=== PATIENT | male | born 1945 | race Caucasian/White ===

== ENCOUNTER 2019-08-20 06:38 | Day surgery (SDC) | payer SELFPAY ==
[~2019-08-20] VITALS: Ht 172.7 cm; Wt 73.5 kg
[~2019-08-20 06:38] MED LIST: COUMADIN4 MG PO
[2019-08-20 07:05] VITALS: BP 144/85; PULSE 84; TEMP 97.7
[2019-08-20] MEDS ORDERED: COUMADIN 2MG2 MG/TAB PO (07:15)
--- NOTE | 2019-08-20 07:16 | NUR ---
TO RM AT 0645- CALL LIGHT IN REACH FRIEND WILL BE BACK TO TAKE PATIENT HOME
[2019-08-20 08:15] VITALS: BP 136/96; PULSE 81
--- NOTE | 2019-08-20 08:15 | NUR ---
TO BAY 3 PER CART FROM ENDOSCOPY. ALERT ORIENTED X3, AMBULATED TO RECLINER WITH ASSIST AND TOLERATED WELL. RECEIVED COFFEE. FRIEND AC AT BEDSIDE.
[2019-08-20 08:30] VITALS: BP 147/87; PULSE 81
--- NOTE | 2019-08-20 08:30 | NUR ---
INSTRUCTED PATIENT TO TAKE FEW DEEP BREATHS AND 02 SATS UP TO 98% TOLERATING COFFEE WELL.
[2019-08-20 08:40] VITALS: BP 116/92; PULSE 71
--- NOTE | 2019-08-20 08:40 | NUR ---
RECEIVED DISCHARGE INSTRUCTIONS AND VERBALIZED UNDERSTANDING INSTRUCTED PATIENT FOR NEXT COLONOSCOPY IN 5YRS.
--- NOTE | 2019-08-20 08:50 | NUR ---
DISCHARGED PER WC BY NURSING STAFF TO PRIVATE CAR IN CARE OF FRIEND AC
== END 2019-08-20 09:05 | disposition home or self-care (01) ==
LOC: SDCO 06:38
DX: D12.3 Benign neoplasm of transverse colon (principal); I48.91 Unspecified atrial fibrillation; Z79.01 Long term (current) use of anticoagulants; Z80.3 Family history of malignant neoplasm of breast; Z82.49 Family history of ischemic heart disease and other diseases of the circulatory system; Z87.891 Personal history of nicotine dependence; C44.90 Unspecified malignant neoplasm of skin, unspecified
CPT/HCPCS: J2704; J7120

== ENCOUNTER → 2021-09-01 | Outpatient (CLI) | payer MEDICARE ==
[~2021-09-01] MED LIST changes: +COUMADIN 2MG2 MG/TAB PO
== END ==
LOC: COL.RAD 11:06
DX: I65.21 Occlusion and stenosis of right carotid artery (principal); I65.02 Occlusion and stenosis of left vertebral artery
CPT/HCPCS: Q9967

== ENCOUNTER 2022-02-18 14:45 | Inpatient (IN) | payer MEDICARE ==
[~2022-02-18] VITALS: Ht 167.6 cm; Wt 63.0 kg
[2022-02-18] MEDS ORDERED: COUMADIN 1MG1 MG/TAB PO (15:07)
[2022-02-18] MEDS ORDERED: LIPITOR 10MG10 MG PO (15:07)
[2022-02-18 15:08] LABS: BASO % 0.6 % (0.0-2.0); EOS % 0.6 % (0.0-4.0); GRAN # 4.9 K/mm3 (1.4-6.5); GRAN % 72.1 % (42.2-75.2); HEMOGLOBIN 12.6 g/dl (13.5-18.0); LYMPH # 1.2 K/mm3 (1.2-3.4); LYMPH % 17.2 % (20.0-51.0); MEAN CELL VOLUME 85 fl (80.0-100.0); MEAN CORPUSCULAR HEMOGLOBIN 31 pg (27-31); MEAN CORPUSCULAR HGB CONC 36 g/dl (33.0-37.0); MEAN PLATELET VOLUME 10.2 fl (7.4-10.4); MONO # 0.6 K/mm3 (0.1-0.6); MONO % 9.1 % (1.7-9.3); PLATELET COUNT 151 K/mm3 (130-400); REDCELL DISTRIBUTION WIDTH-CV 12.7 % (11.5-14.5)
[2022-02-18] MEDS ORDERED: RAPAFLO8 MG PO (15:08)
[2022-02-18] MEDS ORDERED: TRENTAL 400MG400 MG PO (15:08)
[2022-02-18 15:09] LABS: HEMATOCRIT 34.9 % (42.0-52.0)
[2022-02-18 15:33] LABS: ALBUMIN 3.6 gm/dL (3.4-4.8); ALKALINE PHOSPHATASE 52 U/L (40-150); ANION GAP 14 mmol/L (7-16); AST,SGOT 22 U/L (5-34); BILIRUBIN,TOTAL 2.1 mg/dL (0.2-1.2); BLOOD UREA NITROGEN 19 mg/dL (8-26); CALCIUM 8.6 mg/dL (8.4-10.2); CARBON DIOXIDE 20 mmol/L (23-31); CHLORIDE 98 mmol/L (98-107); CREATININE, serum 0.72 mg/dL (0.72-1.25); GLUCOSE 102 mg/dL (70-99); POTASSIUM 3.2 mmol/L (3.5-4.5); SODIUM 132 mmol/L (136-145); TOTAL PROTEIN 6.7 gm/dL (6.2-8.1)
[2022-02-18 15:38] LABS: ALANINE AMINOTRANSFERASE < 6 U/L (0-55)
[2022-02-18 15:48] LABS: INR 16.6 (0.8-3.0); PROTHROMBIN TIME 196.6 SECONDS (9.7-12.8)
[2022-02-18 15:51] LABS: TROPONIN-I < 0.010 ng/mL (0.00-0.033)
--- NOTE | 2022-02-18 17:30 | NUR ---
PATIENT ARRIVED TO FLOOR FROM ED IN STABLE CONDITION. HPOXIC UPON ARRIVAL, PLACED ON 2L O2 VIA NC. TACHYCARDIC IN AFIB UPON ARRIVAL. NO COMPLAINTS OF CHEST PAIN OR DIFFICULTY BREATHING. DENIES PAIN AT THIS TIME. MODERATE BLEEDING OBSERVED FROM ORAL CAVITY. PATIENT GIVEN SMALL AMOUNT OF WARM WATER TO SWISH AND SPIT. WILL CONTINUE TO MONITOR FOR SPONTANEOUS BLEEDING FROM OTHER SITES, NONE IDENTIFIED AT THIS TIME. BRUISING TO MULTIPLE AREAS OF THE BODY NOTED. NO SKIN BREAKDOWN OR ULCERATIONS NOTED. PATIENT APPEARS DISHEVELED. PLEASANT. A&O X4. IV SITE PATENT WITH FLUIDS RUNNING ORDERED. MEAL TRAY ORDERED PER DIET. PATIENT ADVISED TO CALL FOR ASSIST WITH AMBULATION AND BATHROOM FALL RISK IS HIGH AND DANGEROUS AT THIS TIME DUE TO BLEEDING RISK. PATIENT VERBALIZED UNDERSTANDING. ORDERS RECIEVED AND REVIEWED. MED REC DONE.
[2022-02-18 18:01] VITALS: BP 119/73; PULSE 109; TEMP 97.9
--- NOTE | 2022-02-18 19:59 | NUR ---
PATIENT IN AFIB RVR VERY RAPID RATE ABOVE 180, NOTIFIED MITCHELL PIMENTEL, PATIENT REST ROOM DENIES SYMPTOMS
[2022-02-18 20:00] VITALS: BP 117/66; PULSE 100; TEMP 97.8
--- NOTE | 2022-02-18 20:00 | NUR ---
Patient is resting in bed, alert but partially oriented. Telemetry in place, AFIB, Tachycardic. Jumps from 80's to 150 and to 180 when walking. 2l O2 NC. Receiving NS 75 ML/HR. Assessment completed, no other needs at this time. Call light within reach.
--- NOTE | 2022-02-18 21:00 | NUR ---
Called from aid stating patient removed one tooth. Checking the patient I found a molar on the table, not much fresh blood on it. Patient stated he had pain in his left upper molar and since it was already loose he just pull it out. I reported issue to Rocio CASIANO. Some water provided to wash and spit on tray provided, and a gauze placed in the molar extracted. Not much blood present. Continue monitoring.
[2022-02-18 23:27] LABS: HEMOGLOBIN 11.5 g/dl (13.5-18.0)
[2022-02-18 23:34] LABS: INR 2.5 (0.8-3.0); PROTHROMBIN TIME 28.4 SECONDS (9.7-12.8)
[2022-02-18 23:57] LABS: HEMATOCRIT 32.6 % (42.0-52.0)
[2022-02-19] VITALS (7 sets, daily range): BP systolic 91–110; BP diastolic 49–75; PULSE 85–100; TEMP 97.3–98.5
--- NOTE | 2022-02-19 06:29 | NUR ---
Patient was able to rest after midnight. Continue receiving NS at 75ml. Telemetry in place Afib 80's. Report will be given to day RN.
[2022-02-19 06:47] LABS: BASO % 0.5 % (0.0-2.0); EOS % 0.8 % (0.0-4.0); GRAN # 2.6 K/mm3 (1.4-6.5); GRAN % 66.4 % (42.2-75.2); LYMPH # 0.8 K/mm3 (1.2-3.4); LYMPH % 21.4 % (20.0-51.0); MEAN CELL VOLUME 89 fl (80.0-100.0); MEAN CORPUSCULAR HGB CONC 34 g/dl (33.0-37.0); MONO # 0.4 K/mm3 (0.1-0.6); MONO % 9.9 % (1.7-9.3); PLATELET COUNT 108 K/mm3 (130-400); RED BLOOD COUNT 3.22 M/mm3 (4.20-5.60); REDCELL DISTRIBUTION WIDTH-CV 12.7 % (11.5-14.5)
[2022-02-19 06:51] LABS: HEMATOCRIT 28.5 % (42.0-52.0); HEMOGLOBIN 9.8 g/dl (13.5-18.0); MEAN CORPUSCULAR HEMOGLOBIN 30 pg (27-31)
[2022-02-19 07:19] LABS: ALBUMIN 2.7 gm/dL (3.4-4.8); CALCIUM 7.6 mg/dL (8.4-10.2); CREATININE, serum 0.61 mg/dL (0.72-1.25); MAGNESIUM 1.7 mg/dL (1.6-2.6); PHOSPHOROUS 2.5 mg/dL (2.3-4.7); POTASSIUM 3.4 mmol/L (3.5-4.5)
[2022-02-19 07:45] LABS: INR 1.7 (0.8-3.0); PROTHROMBIN TIME 19.6 SECONDS (9.7-12.8)
--- NOTE | 2022-02-19 08:30 | NUR ---
PT PLEASANT, AOX4, DENIES PAIN, ASSESSMENT PERFORMED, PT INCONTINENT OF URINE AND DID NOT VOCALIZE THIS TO STAFF. NOTED DURING BOOSTING PT FOR BREAKFAST, SOILED SHORTS REMOVED, PT PERFORMED GIULIANA CARE, NEW BRIEF PROVIDED, PT THEN SAT UP FOR BREAKFAST.
--- NOTE | 2022-02-19 12:28 | NUR ---
Dee: No mu-ism preference Situation: Group Insurance Special Agent visited room on rounds. Found patient sitting up in bed. Background: Nurse was attending to patient and said she was almost done and asked panel raiser operator to come in. PT was content and tired. Assessment: Group Insurance Special Agent asked if patient needed anything and he said not at this time. We chatted for awhile about his life and then the panel raiser operator told PT if he needed anyting to let his nurse know. Recommendation: Group Insurance Special Agent will follow up as needed.
--- NOTE | 2022-02-19 13:02 | NUR ---
Fleet Driver met with patient to discuss discharge planning. Patient reports he lives alone in [place] and sees Dr. Pennington for primary care. Patient obtains medications from [facility] with no difficulties and uses a cane for ambulation. Patient states he may need a FWW at time of discharge. Patient reports he is normally independent with ADLS and plans to return home at time of discharge. Patient does not have a DPOA-HC, but states if anyone was going to make medical decisions for him it would be his friend, A.C. (ph#[phone]). Patient would like to complete DPOA-HC form. CEE assisted patient then CEE and MITCHELL Chester provided witness signature. CEE provided original and copies to patient then placed copy in chart. Discharge Plan: Home
--- NOTE | 2022-02-19 13:29 | NUR ---
PT/OT recommend home. PT recommends possibly a FWW and that the patient has been considering getting one. CEE met with the patient to discuss getting a FWW. The patient would like to go ahead and get a FWW through his insurance. He is agreeable with getting it from [facility]. CEE contacted Jenn at [facility] and emailed and faxed the FWW order to [facility]. CEE requested that [facility] deliver the FWW to the patient's room today. Awaiting delivery. *Discharge plan: home*
--- NOTE | 2022-02-19 14:27 | NUR ---
[facility] delivered the FWW to the patient's room.
--- NOTE | 2022-02-19 17:00 | NUR ---
PT PLEASANT, DENIES PAIN, UNEVENTFUL SHIFT OVERALL, NO BLEEDING NOTED DURING SHIFT
--- NOTE | 2022-02-19 20:00 | NUR ---
Patient is resting in bed, alert and oriented. Denies pain, nausea or vomiting. Telemetry in place, afib. At RA. Receiving NS 75ML/HR. Assessment completed, meds provided. No other needs at this time. Call light within reach.
[2022-02-20 04:39] VITALS: BP 97/48; PULSE 89; TEMP 98.2
--- NOTE | 2022-02-20 06:27 | NUR ---
Patient has had a calm night. Continues AFIB HR 80'S-90'S. He was able to sleep. Report will be given to day RN.
[2022-02-20 06:28] LABS: INR 1.4 (0.8-3.0); PROTHROMBIN TIME 16.3 SECONDS (9.7-12.8)
[2022-02-20 06:29] LABS: BASO % 0.3 % (0.0-2.0); EOS # 0.1 K/mm3 (0.0-0.7); EOS % 1.8 % (0.0-4.0); GRAN # 2.5 K/mm3 (1.4-6.5); GRAN % 64.6 % (42.2-75.2); LYMPH # 0.9 K/mm3 (1.2-3.4); LYMPH % 21.6 % (20.0-51.0); MEAN CELL VOLUME 88 fl (80.0-100.0); MEAN CORPUSCULAR HGB CONC 35 g/dl (33.0-37.0); MEAN PLATELET VOLUME 11.1 fl (7.4-10.4); MONO # 0.4 K/mm3 (0.1-0.6); MONO % 10.9 % (1.7-9.3); PLATELET COUNT 105 K/mm3 (130-400)
[2022-02-20 06:31] LABS: HEMATOCRIT 27.3 % (42.0-52.0); HEMOGLOBIN 9.5 g/dl (13.5-18.0); MEAN CORPUSCULAR HEMOGLOBIN 31 pg (27-31)
[2022-02-20 06:38] LABS: ALBUMIN 2.6 gm/dL (3.4-4.8); CALCIUM 7.4 mg/dL (8.4-10.2); CREATININE, serum 0.65 mg/dL (0.72-1.25); MAGNESIUM 1.9 mg/dL (1.6-2.6); PHOSPHOROUS 1.8 mg/dL (2.3-4.7); POTASSIUM 3.9 mmol/L (3.5-4.5)
[2022-02-20 07:11] VITALS: BP 96/58; PULSE 87; TEMP 98.3
--- NOTE | 2022-02-20 09:38 | NUR ---
Patient sitting up in bed, eating breakfast, upon entering the room. Patient denies any pain. Morning medications administered w/ the exception of metoprolol d/t low BP. Shift assessment completed. Patient is a SBA in the room. Patient denies any concerns at this time. Call light w/in reach, patient encouraged to call if any needs arise.
[2022-02-20] MEDS ORDERED: ELIQUIS 5MG PO (09:48)
[2022-02-20] MEDS ORDERED: AMOXICILLIN 8751 TAB PO (09:58)
--- NOTE | 2022-02-20 14:02 | NUR ---
Patient discharged home. IV and telemetry discontinued by this RN. Patient denied any concerns at the time of discharge. All discharge education/instructions discussed w/ patient; Patient verbalized understanding and signed appropriate paperwork.
== END 2022-02-20 13:15 | disposition home or self-care (01) | DRG 813 ==
LOC: COL.ER 14:45 → MEDICAL 16:26
PROVIDERS: Emergency Medicine; Nurse Practitioner Family; Physician Assistant; ADMIT Internal Medicine
DX: D68.32 Hemorrhagic disorder due to extrinsic circulating anticoagulants (principal); D62 Acute posthemorrhagic anemia; I48.20 Chronic atrial fibrillation, unspecified; I65.29 Occlusion and stenosis of unspecified carotid artery; K08.409 Partial loss of teeth, unspecified cause, unspecified class; G93.89 Other specified disorders of brain; I10 Essential (primary) hypertension; E87.6 Hypokalemia; Z66 Do not resuscitate; K13.79 Other lesions of oral mucosa; J32.9 Chronic sinusitis, unspecified; T45.515A Adverse effect of anticoagulants, initial encounter; H91.90 Unspecified hearing loss, unspecified ear; E78.5 Hyperlipidemia, unspecified; Z79.01 Long term (current) use of anticoagulants; Z87.891 Personal history of nicotine dependence
CPT/HCPCS: 99223-AI; 99233-AI; 99239; C9113; J3430; J3475; J7030

== ENCOUNTER → 2022-02-23 | Outpatient (CLI) | payer MEDICARE ==
[~2022-02-23] MED LIST changes: +AMOXICILLIN 8751 TAB PO; +COUMADIN 1MG1 MG/TAB PO; +ELIQUIS 5MG PO; +LIPITOR 10MG10 MG PO; +RAPAFLO8 MG PO; +TRENTAL 400MG400 MG PO
[2022-02-23 15:33] LABS: HEMOGLOBIN 10.9 g/dl (13.5-18.0); MEAN CELL VOLUME 90 fl (80.0-100.0); MEAN CORPUSCULAR HEMOGLOBIN 30 pg (27-31); MEAN CORPUSCULAR HGB CONC 34 g/dl (33.0-37.0); MEAN PLATELET VOLUME 9.6 fl (7.4-10.4); PLATELET COUNT 180 K/mm3 (130-400); RED BLOOD COUNT 3.58 M/mm3 (4.20-5.60)
[2022-02-23 15:35] LABS: HEMATOCRIT 32.3 % (42.0-52.0)
== END ==
LOC: COL.LAB 14:49
PROVIDERS: Internal Medicine
DX: R58 Hemorrhage, not elsewhere classified (principal)